=== PATIENT | male | born 1970 ===

== ENCOUNTER → 2020-12-21 | Day surgery (SDC) | payer OTHER ==
[~2020-12-21] MED LIST: CRESTOR5 MG PO; DUI500 PO; HYZAAR 100-121 UDTAB; NORVASC5 MG PO; ULTRACET PO
== END | disposition home or self-care (01) ==
LOC: ADM 12-16 07:30 → CIR.AMB 06:09
PROVIDERS: ATTEND Orthopaedic Surgery Sports Medicine
DX: S83.241A Other tear of medial meniscus, current injury, right knee, initial encounter (principal); M65.861 Other synovitis and tenosynovitis, right lower leg